=== PATIENT | female | born 1960 | race African-American/Black ===

== ENCOUNTER 2017-12-29 19:47 | Emergency (ER) | payer BC ==
[~2017-12-29] VITALS: Ht 172.7 cm; Wt 89.3 kg
[2017-12-29 19:52] VITALS: BP 151/95; Ht 172.7 cm; Wt 89.3 kg
== END 2017-12-29 21:22 | disposition left against medical advice (07) ==
LOC: ED 19:47
DX: Z53.21 Procedure and treatment not carried out due to patient leaving prior to being seen by health care provider (principal)

== ENCOUNTER 2018-07-10 20:13 | Inpatient (IN) | payer OTHER ==
[~2018-07-10] VITALS: Ht 172.7 cm; Wt 92.8 kg
[2018-07-10 20:18] VITALS: Ht 172.7 cm; Wt 92.8 kg
[2018-07-10 21:13] LABS: BASOPHIL % 0.7 % (0-2); PLATELET COUNT 255 x10^3mcL (130-400); RED CELL DISTRIBUTION WIDTH 13.8 % (11.5-14.5)
[2018-07-10 21:16] LABS: CALCIUM 9.1 mg/dL (8.5-10.1); CARBON DIOXIDE 28.5 mmol/L (21-32); CREATININE SERUM 1.1 mg/dL (0.6-1.0); POTASSIUM SERUM 3.9 mmol/L (3.5-5.1)
[2018-07-10 21:31] LABS: ALBUMIN 3.6 g/dL (3.4-5.0); BILIRUBIN TOTAL 0.4 mg/dL (0.20-1.00); FREE T4 1.41 ng/dL (0.76-1.46); TOTAL PROTEIN, SERUM 7.2 g/dL (6.4-8.2)
[2018-07-10 21:37] LABS: UA SPECIFIC GRAVITY 1.025 (1.005-1.035); microscopic required? YES; urine erythrocyte NEGATIVE (NEGATIVE)
[2018-07-10] MEDS ORDERED: HYDROCHLOROTHIA25 MG PO (22:32)
[2018-07-10] MEDS ORDERED: METFORMIN HCL1000 MG PO (22:32)
[2018-07-10] MEDS ORDERED: COZAAR100 MG PO (22:33)
[2018-07-10] MEDS ORDERED: SYNTHROID0.112 MG PO (22:34)
[2018-07-10] MEDS ORDERED: ASPIR 8181 MG PO (22:34)
[2018-07-10 23:10] VITALS: BP 139/82
[2018-07-11 05:17] VITALS: BP 135/85
[2018-07-11 08:56] VITALS: BP 140/89
[2018-07-11 17:20] VITALS: BP 136/78
[2018-07-11 19:25] VITALS: BP 120/76
[2018-07-12 05:53] VITALS: BP 118/80
[2018-07-12 09:30] VITALS: BP 112/74; BP 12/74
[2018-07-12 12:15] VITALS: BP 112/74
== END 2018-07-12 13:50 | disposition home or self-care (01) | DRG 69 ==
LOC: ED 20:13 → MU 22:17
PROVIDERS: Emergency Medicine
DX: G45.9 Transient cerebral ischemic attack, unspecified (principal); Z88.6 Allergy status to analgesic agent; E11.9 Type 2 diabetes mellitus without complications; I10 Essential (primary) hypertension; E03.9 Hypothyroidism, unspecified
CPT/HCPCS: 82962; 83880; 84439; Q0092